=== PATIENT | female | born 1970 | race Caucasian/White ===

== ENCOUNTER 2019-10-15 17:41 | Inpatient (IN) | payer BC ==
[2019-10-15] MEDS ORDERED: HEPARIN SODIUM,PORCINE 5,000 UNIT/ML 1 ML VIAL IV STA (17:58)
[2019-10-15] MEDS ORDERED: CLOPIDOGREL 75 MG TAB PO STA (17:59)
--- NOTE | 2019-10-15 18:02 | ED ---
General Adult HPI - General Chief complaint: Arrhythmia/Palpitations Stated complaint: trouble breathing Time Seen by Provider: 10/15/19 17:43 Source: patient Mode of arrival: EMS Limitations: no limitations - History of Present Illness Initial comments: Dictation was produced using Plasmon dictation software. please excuse any grammatical, word or spelling errors. This patient was cared for during a federal and state declared state of emergency secondary to Covid 19 Chief Complaint: 49-year-old female presents with dyspnea History of Present Illness: 49-year-old female she was swimming today when she saw him a little too far. Really short of breath and attempted to swim back. When she got back to shore she was very short of breath. She did appear cyanotic to EMS upon initial evaluation. Patient adamantly denies chest pain however EMS reports that when they initially evaluated her she did complain of some chest pain. She became very nauseated and had an episode of emesis. Initial EKG performed by EMS was concerning for SVT according to them. They provided patient with adenosine. The did repeat a EKG. Patient at bedside reports she feels well. She denies any chest pain or shortness of breath at this time. She does complain of some mild back discomfort. The ROS documented in this emergency department record has been reviewed and confirmed by me. Those systems with pertinent positive or negative responses have been documented in the HPI. All other systems are other negative and/or noncontributory. PHYSICAL EXAM: General Impression: Alert and oriented x3, not in acute distress HEENT: Normocephalic atraumatic, extra-ocular movements intact, pupils equal and reactive to light bilaterally, mucous membranes moist. Cardiovascular: Heart regular rate and rhythm Chest: Able to complete full sentences, no retractions, no tachypnea Abdomen: abdomen soft, non-tender, non-distended, no organomegaly Musculoskeletal: Pulses present and equal in all extremities, no peripheral edema Motor: no focal deficits noted Neurological: CN II-XII grossly intact, no focal motor or sensory deficits noted Skin: Intact with no visualized rashes Psych: Normal affect and mood ED course: 49 y Old female presents with exertional dyspnea while swimming today. All signs upon arrival shows 80% on room air. Blood pressure 160/122, respiratory signs within acceptable limits. Patient adamantly denies any chest pain or shortness of breath at this time. EKG was obtained showing findings concerning for ST segment elevation WI. Code STEMI page. Discussed patient case with Dr. William at approximately 6 PM. He was reported to him that patient has no complaints at this time however that she has an EKG concerning for ST segment elevation WI. She does have ST elevations in the high lateral leads and anterior precordial leads. There appears to be reciprocal depressions in inferior leads. Her symptoms although not present currently are concerning for acute coronary syndrome. She does have risk factors for acute coronary syndrome. EKG was faxed to [phone]. Patient has an ALLERGY to aspirin. A sked what her reaction is aspirin she states that when she was 4 years old she had significant facial swelling. At this point is concerning for anaphylaxis. We will withhold aspirin administration at this time. Patient started on heparin. Patient disposition to veterinary laboratory technician. She'll be admitted to hospitalist group. EKG interpretation: Ventricular rate 94, normal sinus rhythm, TN interval 142, QRS 80, QTC 470. No TN prolongation, no QTC prolongation, no old EKG for comparison. ST elevation's and high lateral leads, and V2 and V3 with reciprocal depressions in 2,3 and aVF. EKG concerning for ST segment elevation WI - Related Data Home Medications Medication Instructions Recorded Confirmed Carvedilol [Coreg] 25 mg PO BID 10/15/19 10/15/19 Hydrochlorothiazide (Unknown 1 tab PO DAILY 10/15/19 10/15/19 Strength) Losartan (Unknown Strength) 1 tab PO DAILY 10/15/19 10/15/19 PARoxetine HCL [Paxil] 40 mg PO DAILY 10/15/19 10/15/19 Allergies Allergy/AdvReac Type Severity Reaction Status Date / Time aspirin Allergy Swelling Verified 10/15/19 18:10 morphine Allergy Vomiting Verified 10/15/19 18:10 NSAIDS (Non-Steroidal Allergy Swelling Verified 10/15/19 18:10 Anti-Inflamma Review of Systems ROS Statement: Those systems with pertinent positive or pertinent negative responses have been documented in the HPI. ROS Other: All systems not noted in ROS Statement are negative. Past Medical History Past Medical History: Hypertension History of Any Multi-Drug Resistant Organisms: None Reported Past Surgical History: Back Surgery, Section, Hysterectomy Past Psychological History: Anxiety, Panic Disorder Smoking Status: Current every day smoker Past Alcohol Use History: None Reported Past Drug Use History: Marijuana General Exam Limitations: no limitations Course Vital Signs 10/15/19 17:44 Temperature 98.3 F Pulse Rate 99 Respiratory 18 Rate Blood Pressure 160/122 O2 Sat by Pulse 88 L Oximetry Medical Decision Making - Lab Data Result diagrams: 10/15/19 17:55 Lab Results 10/15/19 Range/Units 17:55 WBC 11.7 H (3.8-10.6) k/uL RBC 4.78 (3.80-5.40) m/uL Hgb 14.9 (11.4-16.0) gm/dL Hct 47.4 H (34.0-46.0) % MCV 99.3 (80.0-100.0) fL MCH 31.1 (25.0-35.0) pg MCHC 31.4 (31.0-37.0) g/dL RDW 15.0 (11.5-15.5) % Plt Count 287 (150-450) k/uL Neutrophils % 56 % Lymphocytes % 37 % Monocytes % 3 % Eosinophils % 3 % Basophils % 0 % Neutrophils # 6.5 (1.3-7.7) k/uL Lymphocytes # 4.3 (1.0-4.8) k/uL Monocytes # 0.3 (0-1.0) k/uL Eosinophils # 0.3 (0-0.7) k/uL Basophils # 0.1 (0-0.2) k/uL Hypochromasia Moderate Macrocytosis Slight Disposition Clinical Impression: STEMI (ST elevation myocardial infarction) Disposition: ADMITTED IP TO THIS [facility] Condition: Critical Referrals: Nonstaff,Physician [Primary Care Provider] - 1-2 days Decision Time: 18:17
[2019-10-15 18:10] LABS: Basophils # (A) 0.1 k/uL (0-0.2); Basophils % (A) 0 %; Eosinophils # (A) 0.3 k/uL (0-0.7); Eosinophils % (A) 3 %; HCT 47.4 % (34.0-46.0); HGB 14.9 gm/dL (11.4-16.0); Hypochromasia Moderate; Lymphocytes # (A) 4.3 k/uL (1.0-4.8); Lymphocytes % (A) 37 %; MCH 31.1 pg (25.0-35.0); MCHC 31.4 g/dL (31.0-37.0); MCV 99.3 fL (80.0-100.0); Macrocytosis Slight; Mean Platelet Volume 8.6; Monocytes # (A) 0.3 k/uL (0-1.0); Monocytes % (A) 3 %; Neutrophils # (A) 6.5 k/uL (1.3-7.7); Neutrophils % (A) 56 %; Platelet Count 287 k/uL (150-450); RBC 4.78 m/uL (3.80-5.40); WBC 11.7 k/uL (3.8-10.6)
--- NOTE | 2019-10-15 18:12 | XR ---
EXAMINATION TYPE: XR chest 1V portable DATE OF EXAM: 10/15/2019 COMPARISON: NONE HISTORY: Chest pain TECHNIQUE: FINDINGS: Heart and mediastinum are normal. Lungs are clear of consolidation. There are no hilar mass es. Costophrenic angles are clear. IMPRESSION: Normal heart. No active cardiopulmonary disease.
[2019-10-15] MEDS ORDERED: NALOXONE 0.4 MG/ML 1 ML VIAL IV PRN (18:17)
[2019-10-15 18:18] LABS: INR 0.9 (<1.2); Prothrombin Time 9.6 sec (9.0-12.0)
[2019-10-15 18:20] LABS: Albumin 4.2 g/dL (3.5-5.0); Calcium 8.7 mg/dL (8.4-10.2); Potassium 4.7 mmol/L (3.5-5.1); Total Bilirubin 0.3 mg/dL (0.2-1.3); Total Protein 6.8 g/dL (6.3-8.2)
[2019-10-15 18:25] LABS: Partial Thromboplastin Time 22.2 sec (22.0-30.0)
[2019-10-15 18:32] LABS: Creatine Kinase MB 5.6 ng/mL (0.0-2.4)
[2019-10-15 18:33] LABS: Troponin I 0.841 ng/mL (0.000-0.034)
[2019-10-15] MEDS ORDERED: SODIUM CHLORIDE 0.9% 1,000 ML IV ONE (18:37)
[2019-10-15] MEDS: MIDAZOLAM 2 MG/2 ML VIAL IVP ONE ×2 (18:45→18:52)
[2019-10-15] MEDS ORDERED: METOPROLOL TARTRATE 5 MG/5 ML VIAL IVP ONE ×2 (18:45→18:47)
[2019-10-15] MEDS ORDERED: LIDOCAINE 1% INJ 10MG/ML (20 ML MDV) SQ ONE (18:48)
[2019-10-15] MEDS ORDERED: fentaNYL (PF) 50 MCG/ML 2 ML AMP ONE (18:49)
[2019-10-15] MEDS ORDERED: fentaNYL (PF) 50 MCG/ML 2 ML AMP IVP ONE (18:52)
[2019-10-15] MEDS ORDERED: FUROSEMIDE 10 MG/ML 4 ML VIAL ONE (19:05)
[2019-10-15] MEDS ORDERED: FUROSEMIDE 10 MG/ML 4 ML VIAL IVP ONE (19:12)
[2019-10-15] MEDS ORDERED: IOPAMIDOL-370 50ML BTL INJ ONE (19:13)
[2019-10-15] MEDS ORDERED: IOPAMIDOL-370 100ML BTL INJ ONE (19:13)
[2019-10-15 19:17] LABS: ABG Base Excess -5.4 mmol/L; ABG HCO3 23 mmol/L (21-25); ABG Oxygen Saturation 75.8 % (94-97); ABG PCO2 59 mmHg (35-45); ABG TCO2 25 mmol/L (19-24); Allen Test Performed? Yes
[2019-10-15 19:23] LABS: ABG PH 7.19 (7.35-7.45); ABG PO2 49 mmHg (83-108)
[2019-10-15 19:43] LABS: Glucose,Whole Blood 186 mg/dL (75-99)
[2019-10-15] MEDS ORDERED: FUROSEMIDE 10 MG/ML 2 ML VIAL IV ONE (20:00)
[2019-10-15] MEDS ORDERED: DOBUTamine DRIP 500 MG in DEXTROSE/WATER 1 250ML.BAG IV SCH (20:15)
[2019-10-15] MEDS ORDERED: FUROSEMIDE 100 MG in SODIUM CHLORIDE 0.9% 90 ML IV SCH (20:15)
[2019-10-15 20:25] LABS: Magnesium 2.1 mg/dL (1.6-2.3); Potassium 4.9 mmol/L (3.5-5.1)
[2019-10-15] MEDS ORDERED: ONDANSETRON 4 MG/2 ML VIAL IVP PRN (20:38)
[2019-10-15] MEDS: SODIUM CHLORIDE 0.9% 1,000 ML IV SCH (21:00)
--- NOTE | 2019-10-16 00:03 | CONS ---
CONSULTATION This is a 49-year-old lady who I evaluated in the cardiac dental laboratory technician apprentice. This lady apparently came for day visit from the [facility]. She was inside the [place] about water up to her chest and she was swimming and waiting and playing and her grandson and were out on the beach. Suddenly her saw the 2 people were bringing her to the shore because she was extremely short of breath and she complained of some chest tightness and pressure. She was brought to the emergency room, seen by the ER doctor. There was a mild questionable equivocal ST elevation in lead 1 and aVL. The dental laboratory technician apprentice was alerted. Dr. William was called and he notified me and I came into see the patient. At the time of my evaluation, she did not have chest pain. She said she probably had a panic attack, but she was quite short of breath, did not get her breath. She looks very cold, clammy and oxygen saturation is about 80%. She did not have any chest discomfort at the time of my evaluation. PAST MEDICAL HISTORY: Remarkable for hypertension, smoking and marijuana use. She is also status post section and hysterectomy and back surgery. MEDICATIONS: She takes hydrochlorothiazide, losartan, and Coreg. ALLERGIES: SHE IS ALLERGIC TO ASPIRIN AND MORPHINE. PHYSICAL EXAMINATION: On examination, blood pressure was 130/80 pulse rate of about 118 per minute, tachycardic. HEENT: Unremarkable. Fundus was not examined by me. NECK: Supple. There is JVD of 1 cm. No carotid bruit. Heart exam reveals S1, S2 heard normally. No significant rub, murmur or gallop. Lungs reveal bilateral diminished air entry. Abdomen is soft. Lower extremities reveal diminished pulses. Central nervous system grossly within normal limits. EKG revealed a sinus tachycardia was questionable J-point elevation in lead 1 and aVL, but voltage criteria for LVH, probable cardiomyopathy. IMPRESSION: 1. Probable acute ischemic syndrome. No clear-cut ST elevation myocardial infarction. 2. Hypertension. 3. History of marijuana use and she used marijuana about 45 minutes prior to her arrival to the hospital. 4. History of tobacco abuse. RECOMMENDATIONS: I recommended coronary angiography and proceeded to perform the procedure expeditiously. MMODL / IJN: [id number] /
--- NOTE | 2019-10-16 00:12 | CC ---
CARDIAC CATHETERIZATION REPORT DATE OF SERVICE: 10/15/2019. PROCEDURE PERFORMED: Left heart catheterization and coronary angiography and left ventriculography. PERFORMED BY: Dr. Cb Glover. SEDATION: Moderate conscious sedation time was 26 minutes. Patient was administered Versed. Oxygen saturation, hemodynamics and EKG were monitored closely. CLINICAL INFORMATION: Mrs. Elisabeth Monterroso is a 49-year-old lady with history of hypertension smoking and marijuana use, came into the hospital with severe shortness of breath, had equivocal ST- segment changes and was advised cardiac catheterization after evaluation in the laborer operator. Procedure, risks, benefits, options, rationale were explained. PROCEDURE NOTE: Under local anesthesia and strict aseptic precautions, a 6-Sammarinese introducer was placed in the right femoral artery. Using left Jonathan guide catheter, I performed selective coronary angiography of the left coronary artery and a right catheter was used to check the right coronary artery. A standard Jonathan right catheter was used. I also checked LV pressures. I then used a pigtail to check LV pressures and performed LV-gram in 30- degree GALLAGHER projection. The patient tolerated procedure well. The sheath was taken out and Angio-Seal device used to secure hemostasis and she was sent to the room in a stable condition. She was sent to the room in hemodynamically stable condition. However, patient was quite hypoxic. Her oxygen saturation was in the 80s. I sent out a lactate and blood gases. Lactate level was 7.4, and ejection fraction is less than 15%. Her acidosis is related to poor cardiac output and lactic acid is also related to a poor cardiac output situation. CARDIAC CATHETERIZATION FINDINGS: CORONARY ANGIOGRAPHY FINDINGS: The left ventricle: The left end-diastolic pressure was about 22 mmHg without any gradient across aortic valve. CORONARY ANGIOGRAPHY FINDINGS: LEFT MAIN CORONARY ARTERY: Short patent disease-free vessel that bifurcates into LAD and circumflex. LEFT ANTERIOR DESCENDING CORONARY ARTERY: Good caliber vessel extends along the anterior wall. In the midportion, there is about a 45% to 50% narrowing and a septal branch. Then the caliber improves, flow is somewhat sluggish. It runs all the way to the apex supplying a sizable amount of myocardium. There is no significant disease in the entire LAD system other than the than the 45% to 50% mid lesion at the origin of a septal branch. Flow is sluggish. There are 2 diagonals, free of significant disease. LEFT POSTERIOR CIRCUMFLEX CORONARY ARTERY: Technically a nondominant vessel of good caliber and good distribution, gives of 2 large obtuse marginal branches that are free of significant disease. The groove branch has minor irregularities. LEFT VENTRICULOGRAM This was performed in 30-degree GALLAGHER projection, revealed ejection fraction of less than 10% with global decrease in contractility noted. There is moderate to severe mitral regurgitation noted. Possibility of mitral valve prolapse is also not excluded. Aortic root is normal in size. IMPRESSION: 1. This patient has a right dominant system 45% to 50% mid LAD lesion. No significant gradient across aortic valve. Elevated filling pressures. Ejection fraction of less than 20% with the krsiuven-qe-hndvvj mitral regurgitation and possible mitral valve prolapse. RECOMMENDATIONS: This patient has an unexplained acute heart failure with poor pump. I am recommending IV Lasix drip and dobutamine drip. Prognosis remains quite guarded and poor. I discussed my thoughts in detail with the patient and family. Patient is being sent to the ICU to be watched carefully. She will be on a dobutamine drip and Lasix drip and I spoke to Dr. Guevara from Critical Care Management standpoint and he will be following the patient as well. Etiology seems unclear whether this is an acute myocarditis or a takotsubo type picture is somewhat unclear. Prognosis however remains guarded and this was explained very clearly to the patient as well as her . Possibility of this being related to her marijuana use also cannot be totally excluded. Prognosis remains quite guarded and we will continue to watch her very carefully. MMODL / IJN: [id number] /
[2019-10-16] MEDS ORDERED: ACETAMINOPHEN TAB 500 MG TAB PO PRN (00:27)
[2019-10-16] MEDS ORDERED: TEMAZEPAM 15 MG CAP PO PRN (00:27)
[2019-10-16 02:07] LABS: Appearance,Urine Clear (Clear); Bilirubin,Urine Negative (Negative); Blood,Urine Negative (Negative); Color,Urine Colorless; Glucose,Urine (UA) Negative (Negative); Ketones,Urine Negative (Negative); Leukocyte Esterase,Urine Negative (Negative); Nitrite,Urine Negative (Negative); Protein,Urine Negative (Negative); Specific Gravity,Urine 1.013 (1.001-1.035); Urobilinogen,Urine <2.0 mg/dL (<2.0)
[2019-10-16 02:18] LABS: Amphetamine Screen,Urine Not Detected (NotDetected); Barbiturate Screen,Urine Not Detected (NotDetected); Benzodiazepines Screen,Urine Not Detected (NotDetected); Cocaine Screen,Urine Not Detected (NotDetected); Methadone Screen, Urine Not Detected (NotDetected); Opiate Screen,Urine Not Detected (NotDetected); Oxycodone Screen, Urine Not Detected (NotDetected); Phencyclidine Screen,Urine Not Detected (NotDetected); Tricyclic Antidepressant,Urine Not Detected (NotDetected); Urn Cannabinoid Scrn Detected (NotDetected)
[2019-10-16 05:03] LABS: Basophils % (A) 0 %; Eosinophils # (A) 0.2 k/uL (0-0.7); Eosinophils % (A) 1 %; HCT 45.9 % (34.0-46.0); Lymphocytes # (A) 3.1 k/uL (1.0-4.8); Lymphocytes % (A) 20 %; MCH 30.7 pg (25.0-35.0); MCHC 32.6 g/dL (31.0-37.0); Mean Platelet Volume 8.1; Monocytes # (A) 0.6 k/uL (0-1.0); Monocytes % (A) 4 %; Neutrophils # (A) 11.6 k/uL (1.3-7.7); Neutrophils % (A) 74 %; Platelet Count 301 k/uL (150-450); RBC 4.87 m/uL (3.80-5.40); RDW 14.8 % (11.5-15.5); WBC 15.7 k/uL (3.8-10.6)
[2019-10-16 05:09] LABS: MCV 94.1 fL (80.0-100.0)
[2019-10-16 05:15] LABS: Albumin 4.4 g/dL (3.5-5.0); C Reactive Protein 34.4 mg/L (<10.0); Calcium 8.5 mg/dL (8.4-10.2); Potassium 4.1 mmol/L (3.5-5.1); Total Bilirubin 0.4 mg/dL (0.2-1.3); Total Protein 6.8 g/dL (6.3-8.2)
[2019-10-16 05:44] LABS: Erythrocyte Sedimentation Rate 13 mm/hr (0-20)
[2019-10-16] MEDS: PANTOPRAZOLE 40 MG TABLET PO SCH (07:07)
[2019-10-16 07:13] LABS: Glucose,Whole Blood 103 mg/dL (75-99)
--- NOTE | 2019-10-16 08:37 | HP ---
HISTORY AND PHYSICAL DATE OF SERVICE: 10/15/2019 CHIEF COMPLAINTS: Shortness of breath. HISTORY OF PRESENT ILLNESS: This is a 49-year-old woman, who is from [place], with a past medical history of hypertension, history of SVT, history of hysterectomy, in 2008, anxiety, panic attacks and history of smoking. She was apparently sitting on the beach in [place]. The patient became short of breath and the patient was apparently cyanotic and EMS saw the patient and SVT was suspected. The patient was given adenosine. The patient was admitted for further evaluation. EKG showed ST-T changes suggestive of anterior wall myocardial infarction with reciprocal changes. The patient also complains of chest tightness and pressure. Cardiac catheterization was done by Dr. Cb Glover which showed ejection fraction about 20% with tolijgla-ad-jthway mitral regurgitation, possible mitral valve prolapse and as well as 45 to 50 percent mild LAD lesion also. The patient was admitted for further evaluation and treatment in ICU. There is no history of fever, rigors, chills. No history of headaches, loss of consciousness or seizures. PAST MEDICAL HISTORY: History of hypertension, history of SVT, history of hysterectomy, anxiety, panic attacks. MEDICATIONS: Prior to admission; 1. Paxil 40 mg p.o. daily. 2. Coreg 25 mg p.o. b.i.d. 3. Losartan hydrochlorothiazide. ALLERGIES: ASPIRIN AND MORPHINE. FAMILY HISTORY: No history of heart disease or strokes in the family. SOCIAL HISTORY: History of smoking. History of occasional alcohol intake and THC. REVIEW OF SYSTEMS: ENT: No history of diminished hearing or vision. CARDIOVASCULAR: As mentioned earlier. RESPIRATORY: As mentioned earlier. GI: No nausea, vomiting, or diarrhea. : No dysuria or hematuria. NERVOUS SYSTEM: No numbness or weakness. ALLERGY/IMMUNOLOGY: No asthma or hayfever. MUSCULOSKELETAL: As mentioned earlier. HEMATOLOGY/ONCOLOGY: No history of anemia. ENDOCRINE: No history of diabetes or hypothyroidism. CONSTITUTIONAL: As mentioned earlier. DERMATOLOGY: Negative. RHEUMATOLOGY: Negative PSYCHIATRY: As mentioned earlier. PHYSICAL EXAMINATION: Alert and oriented times three. Pulse 81, blood pressure 125/90, respiration 18, temperature normal, pulse ox 94% on room air. HEENT: Conjunctivae normal. NECK: No jugular venous distention. CARDIOVASCULAR: S1, S2, muffled. RESPIRATORY: Diminished breath sounds at the bases. No rhonchi or crackles. ABDOMEN: Soft, nontender. No masses palpable. LEGS: No edema, no swelling. NERVOUS SYSTEM: Higher functions mentioned earlier. Moves all four limbs. No focal motor or sensory deficits. LYMPHATICS: No lymph node in neck or axilla. SKIN: No rash. JOINTS: No active deforming arthropathy. LABS: At this time shows WBC 11.6, hemoglobin is 14.9 otherwise ABGs showed pH of 7.19, sodium 141, potassium 4.7 and creatinine is 1.15. Glucose 199. Lactic acid 1.4 and AST is 120, ALT is 49, alkaline phosphatase 155. Troponin 0.841. ASSESSMENT: 1. Possible acute coronary syndrome with acute dln-ZD-camvghx-elevation myocardial infarction with troponin 0.841 with status post cardiac catheterization showing 45- 50 percent left anterior descending lesion. 2. Possible cardiomyopathy, ejection fraction 20% with kowsrqds-vg-pyaaoe mitral regurgitation with possible mitral valve prolapse, possible takotsubo syndrome. 4. Possible supraventricular tachycardia. 5. Increased AST and ALT, possibly hepatitis. 6. Rule out COVID-19. 7. Elevated plasma lactic acid, possibly from hypoperfusion. 8. Metabolic acidosis, possible lactic acidosis. 9. Increased creatinine with mild acute renal failure possible acute tubular necrosis. 10.Increased white blood cells. 11.History of nicotine dependence. 12.History hypertension. 13.History of hysterectomy. 14.History of cardiac catheterization. 15.History of panic attacks. 16.History of THC. 17.History of anxiety. 18.FULL CODE. RECOMMENDATIONS AND DISCUSSION: In this 49-year-old woman who presented with multiple complex medical issues, we will monitor the patient closely. Continue the current management and continue with symptomatic treatment. Otherwise monitor blood pressure closely in the ICU. A 2D echo with Doppler. Repeat labs. The exact etiology of the patient's presentation is unknown at this time. I would also recommend D-dimer and continue to monitor. COVID-19 also will be requested. Otherwise, prognosis guarded because of multiple complex medical issues. Further recommendations to follow. MMODL / IJN: [id number] / MTDD
[2019-10-16] MEDS: SPIRONOLACTONE 25 MG TAB PO SCH (08:56)
[2019-10-16] MEDS: FUROSEMIDE 10 MG/ML 4 ML VIAL IV SCH ×2 (08:57→20:37)
[2019-10-16] MEDS: HEPARIN SODIUM,PORCINE 5,000 UNIT/ML 1 ML VIAL SQ SCH ×2 (08:57→20:37)
[2019-10-16] MEDS: NICOTINE 14MG/24HR PATCH TRANSDERM SCH (08:57)
[2019-10-16] MEDS: CARVEDILOL 3.125 MG TAB PO SCH ×2 (08:58→17:36)
[2019-10-16] MEDS ORDERED: LISINOPRIL 5 MG TAB PO SCH (09:00)
--- NOTE | 2019-10-16 10:15 | P.PN ---
Subjective Progress Note Date: 10/16/19 This is a 49-year-old female who was swimming yesterday and claimed that she might have been under the water. Patient had some difficulty breathing and subsequently was brought to the emergency room. Her EKG showed some mild ST elevation 1 and aVL and also V1, V2. She was not having any chest pain. Be cause of abnormal EKG, which was questionable for TN, patient was taken label rewinder. Patient had normal coronary arteries but was found to have severely impaired LV function with elevated end-diastolic pressures. Patient was brought on IV Lasix and IV dobutamine. Patient diary [employer] might. She seemed very comfortable. Alert and oriented and in no acute distress. Lying flat in bed without any discomfort or dyspnea. We'll going to discontinue the Lasix drip and dobutamine drip. She was initiated on Lasix by mouth along with Coreg and IFRAH inhibitor. Further recommendation will depend upon the clinical course. We'll also repeat the echocardiogram on Thursday Objective - Vital Signs Vital signs: Vital Signs Temp 98.8 F 10/16/19 04:00 Pulse 77 10/16/19 06:45 Resp 25 H 10/16/19 07:00 BP 118/83 10/16/19 07:00 Pulse Ox 98 10/16/19 07:00 Intake & Output 10/15/19 10/16/19 10/16/19 18:59 06:59 18:59 Intake Total 475 1162.553 75 Output Total 2625 350 Balance 475 -1462.447 -275 Weight 68.039 kg 68.039 kg Intake: IV 475 900 75 Sodium Chloride 0.9% 1, 900 75 000 ml @ 75 mls/hr IV . [id number] MARGARET Rx#:[id number] Intake, IV Titration 22.553 Amount DOBUTamine DRIP 500 mg In 1.786 Dextrose/Water 1 250ml. bag @ 2.5 MCG/KG/MIN 5. 103 mls/hr IV .Q24H MARGARET Rx#:[id number] Furosemide 100 mg In 20.767 Sodium Chloride 0.9% 90 ml @ 7 MG/HR 7 mls/hr IV .[id number] MARGARET Rx#: [id number] Oral 240 Output: Urine 2625 350 Other: Voiding Method Indwelling Catheter - Exam GENERAL EXAM: Patient is alert and oriented and doesn't appear to be in any acute distress HEENT: Normocephalic. Normal reaction of pupils, equal size, normal range of extraocular motion. No erythema or exudates in the throat. NECK: No masses, no nuchal rigidity. CHEST: No chest wall deformity. LUNGS: Equal air entry with no crackles or wheeze. HEART: S1 and S2 normal with no audible mumurs or gallops. Regular rhythm, femorals equal on both sides.. ABDOMEN: No hepatosplenomegaly, normal bowel sounds, no guarding or rigidity. SKIN: No rashes CENTRAL NERVOUS SYSTEM: No focal deficits. EXTREMITIES: No cyanosis, clubbing or edema. - Labs CBC & Chem 7: 10/16/19 04:32 10/16/19 04:32 Labs: Abnormal Lab Results - Last 24 Hours (Table) 10/15/19 10/15/19 10/15/19 Range/Units 17:55 17:55 17:55 WBC 11.7 H (3.8-10.6) k/uL Hct 47.4 H (34.0-46.0) % Neutrophils # (1.3-7.7) k/uL ABG pH (7.35-7.45) ABG pCO2 (35-45) mmHg ABG pO2 (83-108) mmHg ABG Total CO2 (19-24) mmol/L ABG O2 Saturation (94-97) % Chloride (98-107) mmol/L Carbon Dioxide 19 L (22-30) mmol/L BUN 20 H (7-17) mg/dL Creatinine 1.15 H (0.52-1.04) mg/dL Glucose 199 H (74-99) mg/dL POC Glucose (mg/dL) (75-99) mg/dL Plasma Lactic Acid Miguel (0.7-2.0) mmol/L AST 122 H (14-36) U/L ALT 49 H (4-34) U/L Alkaline Phosphatase 155 H (38-126) U/L Total Creatine Kinase 179 H (30-135) U/L CK-MB (CK-2) 5.6 H (0.0-2.4) ng/mL Troponin I 0.841 H* (0.000-0.034) ng/mL C-Reactive Protein (<10.0) mg/L U Marijuana (THC) Screen (NotDetected) 10/15/19 10/15/19 10/15/19 Range/Units 17:55 19:13 19:41 WBC (3.8-10.6) k/uL Hct (34.0-46.0) % Neutrophils # (1.3-7.7) k/uL ABG pH 7.19 L* (7.35-7.45) ABG pCO2 59 H (35-45) mmHg ABG pO2 49 L* (83-108) mmHg ABG Total CO2 25 H (19-24) mmol/L ABG O2 Saturation 75.8 L (94-97) % Chloride (98-107) mmol/L Carbon Dioxide (22-30) mmol/L BUN (7-17) mg/dL Creatinine (0.52-1.04) mg/dL Glucose (74-99) mg/dL POC Glucose (mg/dL) 186 H (75-99) mg/dL Plasma Lactic Acid Miguel 7.4 H* (0.7-2.0) mmol/L AST (14-36) U/L ALT (4-34) U/L Alkaline Phosphatase (38-126) U/L Total Creatine Kinase (30-135) U/L CK-MB (CK-2) (0.0-2.4) ng/mL Troponin I (0.000-0.034) ng/mL C-Reactive Protein (<10.0) mg/L U Marijuana (THC) Screen (NotDetected) 10/15/19 10/15/19 10/16/19 Range/Units 19:55 22:25 01:55 WBC (3.8-10.6) k/uL Hct (34.0-46.0) % Neutrophils # (1.3-7.7) k/uL ABG pH (7.35-7.45) ABG pCO2 (35-45) mmHg ABG pO2 (83-108) mmHg ABG Total CO2 (19-24) mmol/L ABG O2 Saturation (94-97) % Chloride 110 H (98-107) mmol/L Carbon Dioxide 19 L (22-30) mmol/L BUN (7-17) mg/dL Creatinine (0.52-1.04) mg/dL Glucose (74-99) mg/dL POC Glucose (mg/dL) (75-99) mg/dL Plasma Lactic Acid Miguel 2.3 H* (0.7-2.0) mmol/L AST (14-36) U/L ALT (4-34) U/L Alkaline Phosphatase (38-126) U/L Total Creatine Kinase (30-135) U/L CK-MB (CK-2) (0.0-2.4) ng/mL Troponin I (0.000-0.034) ng/mL C-Reactive Protein (<10.0) mg/L U Marijuana (THC) Screen Detected H (NotDetected) 10/16/19 10/16/19 10/16/19 Range/Units 04:32 04:32 07:11 WBC 15.7 H (3.8-10.6) k/uL Hct (34.0-46.0) % Neutrophils # 11.6 H (1.3-7.7) k/uL ABG pH (7.35-7.45) ABG pCO2 (35-45) mmHg ABG pO2 (83-108) mmHg ABG Total CO2 (19-24) mmol/L ABG O2 Saturation (94-97) % Chloride (98-107) mmol/L Carbon Dioxide (22-30) mmol/L BUN 19 H (7-17) mg/dL Creatinine (0.52-1.04) mg/dL Glucose 135 H (74-99) mg/dL POC Glucose (mg/dL) 103 H (75-99) mg/dL Plasma Lactic Acid Miguel (0.7-2.0) mmol/L AST 63 H (14-36) U/L ALT 45 H (4-34) U/L Alkaline Phosphatase 147 H (38-126) U/L Total Creatine Kinase (30-135) U/L CK-MB (CK-2) (0.0-2.4) ng/mL Troponin I (0.000-0.034) ng/mL C-Reactive Protein 34.4 H (<10.0) mg/L U Marijuana (THC) Screen (NotDetected) Assessment and Plan (1) Cardiomyopathy Current Visit: Yes Status: Acute Code(s): I42.9 - CARDIOMYOPATHY, UNSPECIFIED SNOMED Code(s): 67921600 (2) Congestive heart failure Current Visit: Yes Status: Acute Code(s): I50.9 - HEART FAILURE, UNSPECIFIED SNOMED Code(s): 72225944 (3) Elevated troponin Current Visit: Yes Status: Acute Code(s): R79.89 - OTHER SPECIFIED ABNORMAL FINDINGS OF BLOOD CHEMISTRY SNOMED Code(s): 637737412 (4) Abnormal EKG Current Visit: Yes Status: Acute Code(s): R94.31 - ABNORMAL ELECTROCARDIOGRAM [ECG] [EKG] SNOMED Code(s): 270737252 Plan: Switch to by mouth Lasix. Discontinue dobutamine. Start on beta jhonatan and IFRAH inhibitor R's and small dose of Aldactone. Echocardiogram in the morning. Surprisingly proBNP is within normal limits
[2019-10-16 12:08] LABS: Glucose,Whole Blood 105 mg/dL (75-99)
[2019-10-16] MEDS: SODIUM CHLORIDE 0.9% 1,000 ML IV SCH (13:08)
[2019-10-16] MEDS: ALPRAZolam 0.25 MG TAB PO PRN (13:58)
--- NOTE | 2019-10-16 13:59 | P.CNPUL ---
History of Present Illness Consult date: 10/16/19 Requesting physician: Mariela Au Reason for consult: dyspnea Chief complaint: Shortness of breath History of present illness: This is a 49-year-old female with no significant previous medical history, patient is a [id number] smoker, she was swimming yesterday, and apparently she had significant difficulty getting back to the [facility]. Upon arrival to the [facility], patient was complaining of shortness of breath, she was also diaphoretic, brought into the ER, and she was found to have abnormal EKG with mild ST elevation in aVL, and she had no chest pain. Considering her abnormal EKG and symptoms, patient underwent cardiac catheterization. She was found to have normal coronaries, but she was found to have severely impaired left ventricular function. There is also significant elevation of the end diastolic pressures. Chest x-ray showed mild edema. 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 Saw her today, the patient is very comfortable, she is on room air, and she is in no distress. Denies any cough no wheezing no shortness of breath at rest, she was seen earlier by cardiology, and she was switched to oral Lasix and her dobutamine was discontinued. Patient was also placed on Coreg, IFRAH inhibitor's, and the feeling is to repeat her echocardiogram on Thursday, patient may have what seems to be a takustubo syndrome. Patient denies any alcohol drinking, denies any previous symptoms suggestive of artery myopathy or LV dysfunction. This seems to be relatively acute onset. Review of Systems Constitutional: Negative HEENT: Negative Pulmonary: As noted in HPI. Cardiac: As noted in HPI. GI: Negative Genitourinary: Negative Skin: Negative Musculoskeletal: Negative Neuropsych: Negative Endocrine: Negative Hematologic: Negative Past Medical History Past Medical History: Hypertension Additional Past Medical History / Comment(s): svt History of Any Multi-Drug Resistant Organisms: None Reported Past Surgical History: Back Surgery, Section, Hysterectomy Additional Past Surgical History / Comment(s): Heart Cath 2018 Past Psychological History: Anxiety, Panic Disorder Smoking Status: Current every day smoker Past Alcohol Use History: None Reported Past Drug Use History: Marijuana Medications and Allergies Home Medications Medication Instructions Recorded Confirmed Type Carvedilol [Coreg] 25 mg PO BID 10/15/19 10/15/19 History Hydrochlorothiazide (Unknown 1 tab PO DAILY 10/15/19 10/15/19 History Strength) Losartan (Unknown Strength) 1 tab PO DAILY 10/15/19 10/15/19 History PARoxetine HCL [Paxil] 40 mg PO DAILY 10/15/19 10/15/19 History Allergies Allergy/AdvReac Type Severity Reaction Status Date / Time aspirin Allergy Swelling Verified 10/15/19 18:10 morphine Allergy Vomiting Verified 10/15/19 18:10 NSAIDS (Non-Steroidal Allergy Swelling Verified 10/15/19 18:10 Anti-Inflamma Physical Exam Vitals: Vital Signs Temp Pulse Resp BP Pulse Ox 10/16/19 13:00 90 17 103/74 96 10/16/19 12:00 98.4 F 62 18 115/91 97 10/16/19 11:00 72 25 H 117/94 97 10/16/19 10:30 69 18 123/95 97 10/16/19 10:00 88 17 113/89 97 10/16/19 09:30 72 21 135/100 93 L 10/16/19 09:15 88 24 108/93 92 L 10/16/19 09:00 77 26 H 124/95 90 L 10/16/19 08:45 102 H 26 H 122/94 94 L 10/16/19 08:30 75 14 117/82 90 L 10/16/19 08:15 82 24 123/84 95 10/16/19 08:00 98.2 F 68 20 131/92 95 10/16/19 07:45 71 24 128/89 98 05 07:30 75 20 125/90 98 10/16/19 07:15 73 20 132/97 98 10/16/19 07:00 25 H 118/83 98 10/16/19 06:45 77 28 H 125/92 97 10/16/19 06:30 68 39 H 119/87 97 10/16/19 06:15 74 12 120/88 97 10/16/19 06:00 74 10 L 121/97 96 10/16/19 05:45 84 8 L 118/83 94 L 10/16/19 05:30 76 12 115/83 95 05 05:15 81 12 115/86 95 10/16/19 05:00 75 20 113/84 95 10/16/19 04:45 72 21 128/97 96 10/16/19 04:30 77 8 L 129/96 98 10/16/19 04:15 75 12 133/99 99 10/16/19 04:00 98.8 F 79 20 115/84 97 10/16/19 03:45 78 19 126/96 98 10/16/19 03:30 78 22 122/86 98 10/16/19 03:15 77 16 118/85 99 10/16/19 03:00 78 24 114/84 98 10/16/19 02:45 76 21 108/85 98 10/16/19 02:30 78 19 115/86 98 10/16/19 02:15 77 20 121/89 98 10/16/19 02:00 76 31 H 125/94 97 10/16/19 01:45 76 31 H 130/101 98 10/16/19 01:30 75 12 126/97 97 10/16/19 01:15 83 28 H 119/91 97 10/16/19 01:00 74 15 124/93 97 10/16/19 00:45 77 14 123/93 96 10/16/19 00:30 75 17 116/90 99 10/16/19 00:15 76 17 111/89 96 10/16/19 00:00 96.8 F L 75 20 115/89 96 10/15/19 23:45 75 21 111/83 95 10/15/19 23:30 81 19 109/82 97 10/15/19 23:15 83 26 H 107/86 95 10/15/19 23:07 82 19 107/86 97 10/15/19 23:00 75 17 108/86 95 10/15/19 22:45 90 23 111/84 97 10/15/19 22:30 81 15 125/99 95 10/15/19 22:15 89 25 H 116/92 95 10/15/19 22:00 74 17 119/93 94 L 10/15/19 21:45 85 19 119/98 95 10/15/19 21:30 83 13 118/99 94 L 10/15/19 21:20 85 17 118/99 94 L 10/15/19 21:10 88 31 H 123/98 93 L 10/15/19 21:00 84 9 L 116/99 94 L 10/15/19 20:50 88 16 116/99 94 L 10/15/19 20:40 89 14 110/96 96 10/15/19 20:30 96 F L 81 14 115/94 98 10/15/19 20:20 84 9 L 115/94 98 10/15/19 20:10 84 17 114/91 97 10/15/19 20:00 96 F L 85 23 121/92 88 L 10/15/19 19:50 86 18 121/92 96 10/15/19 19:40 85 17 124/100 88 L 10/15/19 19:36 88 23 10/15/19 18:20 105 H 22 144/113 93 L 10/15/19 18:06 103 H 22 153/119 93 L 10/15/19 17:44 98.3 F 99 18 160/122 88 L Intake and Output 10/15/19 10/16/19 10/16/19 22:59 06:59 14:59 Intake Total 797.553 840 375 Output Total 1150 1475 820 Balance -352.829 -901 -192 Intake: IV 775 600 375 Sodium Chloride 0.9% 1, 300 600 375 000 ml @ 75 mls/hr IV . [id number] [facility] Rx#:[id number] Intake, IV Titration 22.553 Amount DOBUTamine DRIP 500 mg In 1.786 Dextrose/Water 1 250ml. bag @ 2.5 MCG/KG/MIN 5. 103 mls/hr IV .Q24H [facility] Rx#:[id number] Furosemide 100 mg In 20.767 Sodium Chloride 0.9% 90 ml @ 7 MG/HR 7 mls/hr IV .[id number] [facility] Rx#: [id number] Oral 240 Output: Urine 1150 1475 820 Other: Voiding Method Indwelling Catheter Indwelling Catheter Weight 68.039 kg Physical Exam: Revealed 49-year-old female in no distress. Head: Atraumatic, normocephalic. HEENT:[Neck is supple.] [No neck masses.] [No thyromegaly.] [No JVD.] PERRLA, EOMI, no icterus. Chest: [Clear throughout, no crackles, no rhonchi, no wheezes.] Cardiac Exam: [Normal S1 and S2, no S3 gallop, 2/6 systolic murmur thought the precordium. Abdomen: [Soft, nontender, no megaly, no rebound, no guarding, normal bowel sounds.] Extremities: [No clubbing, no edema, no cyanosis.] Neurological Exam: [No focal neurologic deficit.] Alert and oriented 3. Psychiatric: Normal mood, affect and normal mental status examination. Skin: No rashes. Results - Laboratory Findings CBC and BMP: 10/16/19 04:32 10/16/19 04:32 ABG ABG pH 7.19 (7.35-7.45) L* 10/15/19 19:13 ABG pCO2 59 mmHg (35-45) H 10/15/19 19:13 ABG pO2 49 mmHg (83-108) L* 10/15/19 19:13 ABG O2 Saturation 75.8 % (94-97) L 10/15/19 19:13 PT/INR, D-dimer PT 9.6 sec (9.0-12.0) 10/15/19 17:55 INR 0.9 (<1.2) 10/15/19 17:55 Abnormal lab findings: Abnormal Labs 10/15/19 10/15/19 10/15/19 17:55 17:55 17:55 WBC 11.7 H Hct 47.4 H Neutrophils # ABG pH ABG pCO2 ABG pO2 ABG Total CO2 ABG O2 Saturation Chloride Carbon Dioxide 19 L BUN 20 H Creatinine 1.15 H Glucose 199 H POC Glucose (mg/dL) Plasma Lactic Acid Miguel AST 122 H ALT 49 H Alkaline Phosphatase 155 H Total Creatine Kinase 179 H CK-MB (CK-2) 5.6 H Troponin I 0.841 H* C-Reactive Protein U Marijuana (THC) Screen 10/15/19 10/15/19 10/15/19 17:55 19:13 19:41 WBC Hct Neutrophils # ABG pH 7.19 L* ABG pCO2 59 H ABG pO2 49 L* ABG Total CO2 25 H ABG O2 Saturation 75.8 L Chloride Carbon Dioxide BUN Creatinine Glucose POC Glucose (mg/dL) 186 H Plasma Lactic Acid Miguel 7.4 H* AST ALT Alkaline Phosphatase Total Creatine Kinase CK-MB (CK-2) Troponin I C-Reactive Protein U Marijuana (THC) Screen 10/15/19 10/15/19 10/16/19 19:55 22:25 01:55 WBC Hct Neutrophils # ABG pH ABG pCO2 ABG pO2 ABG Total CO2 ABG O2 Saturation Chloride 110 H Carbon Dioxide 19 L BUN Creatinine Glucose POC Glucose (mg/dL) Plasma Lactic Acid Miguel 2.3 H* AST ALT Alkaline Phosphatase Total Creatine Kinase CK-MB (CK-2) Troponin I C-Reactive Protein U Marijuana (THC) Screen Detected H 10/16/19 10/16/19 10/16/19 04:32 04:32 07:11 WBC 15.7 H Hct Neutrophils # 11.6 H ABG pH ABG pCO2 ABG pO2 ABG Total CO2 ABG O2 Saturation Chloride Carbon Dioxide BUN 19 H Creatinine Glucose 135 H POC Glucose (mg/dL) 103 H Plasma Lactic Acid Miguel AST 63 H ALT 45 H Alkaline Phosphatase 147 H Total Creatine Kinase CK-MB (CK-2) Troponin I C-Reactive Protein 34.4 H U Marijuana (THC) Screen 10/16/19 12:06 WBC Hct Neutrophils # ABG pH ABG pCO2 ABG pO2 ABG Total CO2 ABG O2 Saturation Chloride Carbon Dioxide BUN Creatinine Glucose POC Glucose (mg/dL) 105 H Plasma Lactic Acid Miguel AST ALT Alkaline Phosphatase Total Creatine Kinase CK-MB (CK-2) Troponin I C-Reactive Protein U Marijuana (THC) Screen - Diagnostic Findings Chest x-ray: image reviewed (Chest x-ray showed slight prominence of the pulmonary vasculature otherwise unremarkable. No active cardiopulmonary disease) Assessment and Plan Assessment: Impression: Severe cardiomyopathy and LV dysfunction, exact etiology is not clear. That is to be investigated further by cardiology and repeat echocardiogram on Thursday. Acute congestive heart failure secondary to LV dysfunction. Rather mild based on the chest x-ray findings. History of hypertension. History of panic attacks. Generalized anxiety disorder. Recommendation: I fully agree with the present treatment plan, Repeat echocardiogram in the next 24 hours, Continue diuretics. Patient is now off Dobutrex. Repeat chest x-ray in a.m. We will continue to follow Time with Patient: Greater than 30
[2019-10-16] MEDS ORDERED: HYDROmorphone 0.5 MG/0.5 ML SYRINGE IVP PRN (14:30)
[2019-10-16] MEDS: CLOPIDOGREL 75 MG TAB PO SCH (14:54)
[2019-10-16 18:12] LABS: Glucose,Whole Blood 137 mg/dL (75-99)
--- NOTE | 2019-10-17 02:51 | PN ---
PROGRESS NOTE DATE OF SERVICE: 10/16/2019 This 49-year-old woman who was admitted with possible acute coronary syndrome has negative coronary arteries, but cardiomyopathy is not indicating possible . The patient also has supraventricular arrhythmia also. Patient is being closely monitored in ICU at this time. Multiple consultants are following the patient closely. A chest x- ray which was reviewed personally showed no evidence of any cardiac failure at this time. PAST MEDICAL HISTORY: Reviewed. REVIEW OF SYSTEMS: CARDIOVASCULAR SYSTEM: As mentioned earlier. RESPIRATORY SYSTEM: As mentioned earlier. GI: No nausea or vomiting. : No dysuria. NERVOUS SYSTEM: No numbness or weakness. CURRENT MEDICATIONS: Current medications are reviewed and include: Tylenol, Xanax, Coreg, Plavix, Lasix, heparin, Dilaudid, Zestril, Narcan, Habitrol, Zofran, Protonix, Aldactone Restoril. PHYSICAL EXAMINATION: Patient is alert and oriented x3. Pulse is 59, blood pressure 112/83, respiration 20, temperature 98.2, pulse ox 95% on 2 L. HEENT: Conjunctivae normal. NECK: No jugular venous distention. CARDIOVASCULAR: S1, S2 muffled. RESPIRATORY: Breath sounds diminished at the bases. Scattered rhonchi and crackles. ABDOMEN: Soft, nontender. No mass palpable. LEGS: No edema. No swelling. NERVOUS SYSTEM: No focal deficits. LABS: WBC 15.7, hemoglobin 15. Sodium 138, potassium 4.1. Glucose 105 and 137. AST, ALT noted. C-reactive protein is also elevated at 34.4. COVID-19 is negative. ASSESSMENT: 1. Possible acute coronary syndrome with acute [id number]-elevation myocardial infarction with troponin 0.841, status post cardiac catheterization showing 45% to 50% left anterior descending artery lesion. 2. Possible cardiomyopathy, ejection fraction 20% with moderate to severe mitral regurgitation with possible mitral prolapse, possible takotsubo syndrome. 3. Possible supraventricular tachycardia. 4. Increased AST, ALT possible hepatitis. 5. COVID-19 ruled out. 6. Elevated plasma lactic acid, possibly from hypoperfusion. 7. Metabolic acidosis, possible lactic acidosis. 8. Increased creatinine with mild acute renal failure possible acute tubular necrosis and dehydration. 9. Increased WBC. 10.History of nicotine dependence. 11.Hypertension. 12.History of hysterectomy. 13.History of cardiac catheterization. 14.History of panic attacks. 15.History of THC. 16.History of anxiety. 17.FULL CODE. RECOMMENDATIONS AND DISCUSSION: In this 49-year-old woman who presented with multiple complex medical issues, we will monitor the patient closely. Continue the current medications, continue symptomatic treatment. Otherwise, continue with antiplatelet agents. Will repeat labs. Continue with lisinopril. Monitor closely. Further recommendations to follow. Continue with Coreg. MMYOLANDA / LIVANN: [id number] / LUIS
[2019-10-17] MEDS: SODIUM CHLORIDE 0.9% 1,000 ML IV SCH ×2 (03:09→13:12)
[2019-10-17 06:19] LABS: HCT 46.6 % (34.0-46.0); HGB 15.3 gm/dL (11.4-16.0); MCH 30.8 pg (25.0-35.0); MCHC 32.7 g/dL (31.0-37.0); Mean Platelet Volume 8.3; Platelet Count 292 k/uL (150-450); RBC 4.96 m/uL (3.80-5.40); RDW 14.6 % (11.5-15.5); WBC 19.1 k/uL (3.8-10.6)
[2019-10-17 06:27] LABS: Calcium 8.5 mg/dL (8.4-10.2)
[2019-10-17] MEDS: PANTOPRAZOLE 40 MG TABLET PO SCH (06:41)
[2019-10-17] MEDS: CARVEDILOL 3.125 MG TAB PO SCH (06:41)
[2019-10-17 06:42] LABS: Large Platelets Present; Lymphocytes # (M) 6.11 k/uL (1.0-4.8); Monocytes # (M) 1.15 k/uL (0-1.0); Neutrophils # (M) 11.84 k/uL (1.3-7.7); Neutrophils % (M) 62 %; Nucleated Red Blood Cells 0 /100 WBC (0-0); Total Cells Counted 100
[2019-10-17] MEDS: LISINOPRIL 10 MG TAB PO SCH (08:24)
[2019-10-17] MEDS: FUROSEMIDE 10 MG/ML 4 ML VIAL IV SCH (08:24)
[2019-10-17] MEDS: NICOTINE 14MG/24HR PATCH TRANSDERM SCH (08:24)
[2019-10-17] MEDS: SPIRONOLACTONE 25 MG TAB PO SCH (08:24)
[2019-10-17] MEDS: CLOPIDOGREL 75 MG TAB PO SCH (08:24)
[2019-10-17] MEDS: HEPARIN SODIUM,PORCINE 5,000 UNIT/ML 1 ML VIAL SQ SCH ×2 (08:24→20:24)
[2019-10-17] MEDS: ALPRAZolam 0.25 MG TAB PO PRN (09:43)
--- NOTE | 2019-10-17 12:10 | PN ---
PROGRESS NOTE PULMONARY/CRITICAL CARE PROGRESS NOTE: DATE OF SERVICE: A 49-year-old female without much in the way of past medical history other than hypertension, anxiety, and a previous history of SVT, who apparently presents to the emergency room on October 14. She was admitted to the hospital on the 10/[address]-segment elevation myocardial infarction, shortness of breath and weakness. She apparently had a catheterization which was normal and she was being evaluated for possible myocarditis versus Takotsubo cardiomyopathy. The patient apparently had severe LV dysfunction of unclear etiology. She presented with acute congestive heart failure. She does again have a history of panic attacks and anxiety. Currently, she is resting comfortably. She is on 2 L nasal cannula. She is getting saline at 75 mL an hour. The patient is apparently going to have a repeat echocardiogram to re- evaluate her overall cardiac function. The patient was weaned off the dobutamine. Current vital signs are reviewed, temperature 98.7, heart rate 60, respiratory rate 23, blood pressure 140/96, mean 110, 2 L saturation between 92% and 94%. She appears in no acute distress. No respiratory distress. No audible wheezing. No use of accessory muscles. HEENT: Examination is grossly unremarkable. Nasal O2 in place. NECK: Supple, full range of motion. No adenopathy. Neck veins are flat. CARDIOVASCULAR: Examination reveals regular rhythm and rate. Heart sounds are distant. S1, S2 normal. Heart rate 60. LUNGS: Reveal a few scattered rhonchi. A few scattered basilar crackles noted. No wheezes. ABDOMEN: Soft, bowel sounds are noted. No masses or tenderness. EXTREMITIES: Intact. No cyanosis, clubbing, or edema. SKIN: Without rash. NEUROLOGIC: Examination is brief but nonfocal. White count 19.1, hemoglobin 15.3, hematocrit 46.6, platelet count 292,000. Sodium, potassium, chloride, CO2 all normal. Anion gap is 6. BUN and creatinine were 22 and 0.91. Microbiologic studies are pending or negative. Chest x-ray on 10/14 was consistent with mild cephalization and fluid overload. Labs are reviewed. N terminal proBNP was initially only 237. CURRENT MEDICATIONS: Reviewed. She is on Tylenol, Xanax, Coreg, Plavix, Lasix, subcu heparin, Dilaudid, Zestril, Narcan, nicotine patch, Zofran, Protonix, saline IV at 75 mL an hour, Aldactone and Restoril. ASSESSMENT: 1. Severe cardiomyopathy and LV dysfunction, of unclear etiology. This is currently being re-evaluated and evaluated by Cardiology. A repeat echocardiogram is scheduled for today. Their concerns include myocarditis versus takotsubo cardiomyopathy. 2. Acute congestive heart failure, much improved. 3. Hypertension. 4. Panic attacks. 5. History of anxiety disorder. 6. Previous history of tobacco use, rule out chronic obstructive pulmonary disease. PLAN: Currently, the patient is doing reasonably well. Echocardiogram is planned for today. The patient's dobutamine has been weaned off. Additional recommendations and suggestions are forthcoming pending the echocardiogram. From the pulmonary standpoint, she appears to be relatively stable. MMODL / IJN: [id number] /
[2019-10-17] MEDS ORDERED: LORazepam 1 MG TAB PO PRN (12:58)
--- NOTE | 2019-10-17 15:18 | XR ---
EXAMINATION TYPE: XR chest 1V portable DATE OF EXAM: 10/17/2019 COMPARISON: Prior chest x-ray 10/15/2019 HISTORY: Pneumonia follow-up TECHNIQUE: Single frontal view of the chest is obtained. FINDINGS: There is no focal air space opacity, pleural effusion, or pneumothorax seen. The cardiac silhouette size is within normal limits. The osseous structures are intact. There are overlying car diac leads. IMPRESSION: No acute process.
[2019-10-17] MEDS: PARoxetine 20 MG TAB PO SCH (15:42)
--- NOTE | 2019-10-17 16:06 | P.PN ---
Subjective Progress Note Date: 10/17/19 This is a 49-year-old female who was swimming yesterday and claimed that she might have been under the water. Patient had some difficulty breathing and subsequently was brought to the emergency room. Her EKG showed some mild ST elevation 1 and aVL and also V1, V2. She was not having any chest pain. 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 Patient had normal coronary arteries but was found to have severely impaired LV function with elevated end-diastolic pressures. Patient was brought on IV Lasix and IV dobutamine. Patient diary [employer] might. She seemed very comfortable. Alert and oriented and in no acute distress. Lying flat in bed without any discomfort or dyspnea. We'll going to discontinue the Lasix drip and dobutamine drip. She was initiated on Lasix by mouth along with Coreg and IFRAH inhibitor. Further recommendation will depend upon the clinical course. We'll also repeat the echocardiogram on Thursday. 10/17/2019: This 46-year-old female is admitted with severe cardiomyopathy. Had a normal coronary angiography. The patient has been stable. Denies any chest pain or shortness of breath. Chest x-ray is clear of CHF. Patient is off IV Lasix drip and also IV dobutamine. We'll start her on by mouth Lasix. Echocardiogram to be repeated. Possible discharge in a.m. Objective - Vital Signs Vital signs: Vital Signs Temp 98.4 F 10/17/19 12:00 Pulse 79 10/17/19 15:00 Resp 21 10/17/19 15:00 BP 158/106 10/17/19 15:00 Pulse Ox 94 L 10/17/19 15:00 Intake & Output 10/16/19 10/17/19 10/17/19 18:59 06:59 18:59 Intake Total 900 900 675 Output Total 1020 1325 250 Balance -120 -425 425 Weight 71.8 kg Intake: IV 900 900 675 Sodium Chloride 0.9% 1, 900 900 675 000 ml @ 75 mls/hr IV . [id number] [facility] Rx#:[id number] Output: Urine 1020 1325 250 Other: Voiding Method Bedpan Bedside Commode Toilet Bedside Commode # Voids 1 - Exam GENERAL EXAM: Patient is alert and oriented and doesn't appear to be in any acute distress HEENT: Normocephalic. Normal reaction of pupils, equal size, normal range of extraocular motion. No erythema or exudates in the throat. NECK: No masses, no nuchal rigidity. CHEST: No chest wall deformity. LUNGS: Equal air entry with no crackles or wheeze. HEART: S1 and S2 normal with no audible mumurs or gallops. Regular rhythm, femorals equal on both sides.. ABDOMEN: No hepatosplenomegaly, normal bowel sounds, no guarding or rigidity. SKIN: No rashes CENTRAL NERVOUS SYSTEM: No focal deficits. EXTREMITIES: No cyanosis, clubbing or edema. - Labs CBC & Chem 7: 10/17/19 05:32 10/17/19 05:32 Labs: Abnormal Lab Results - Last 24 Hours (Table) 10/16/19 10/17/19 10/17/19 Range/Units 18:11 05:32 05:32 WBC 19.1 H (3.8-10.6) k/uL Hct 46.6 H (34.0-46.0) % Neutrophils # (Manual) 11.84 H (1.3-7.7) k/uL Lymphocytes # (Manual) 6.11 H (1.0-4.8) k/uL Monocytes # (Manual) 1.15 H (0-1.0) k/uL BUN 22 H (7-17) mg/dL POC Glucose (mg/dL) 137 H (75-99) mg/dL Assessment and Plan (1) Cardiomyopathy Current Visit: Yes Status: Acute Code(s): I42.9 - CARDIOMYOPATHY, UNSPECIFIED SNOMED Code(s): 01596166 (2) Congestive heart failure Current Visit: Yes Status: Acute Code(s): I50.9 - HEART FAILURE, UNSPECIFIED SNOMED Code(s): 81103635 (3) Elevated troponin Current Visit: Yes Status: Acute Code(s): R79.89 - OTHER SPECIFIED ABNORMAL FINDINGS OF BLOOD CHEMISTRY SNOMED Code(s): 785583919 (4) Abnormal EKG Current Visit: Yes Status: Acute Code(s): R94.31 - ABNORMAL ELECTROCARDIOGRAM [ECG] [EKG] SNOMED Code(s): 603386437 Plan: Patient is critically stable. Chest x-ray is clear. We'll discontinue IV Lasix. Start her on by mouth Lasix. Echo tomorrow. Possible discharge tomorrow
[2019-10-17] MEDS: CARVEDILOL 12.5 MG TAB PO SCH (17:04)
--- NOTE | 2019-10-17 17:46 | PN ---
PROGRESS NOTE DATE OF SERVICE: 10/17/2019 This 49-year-old woman who was admitted with possible cardiorespiratory syndrome and tachycardia also had a significant low ejection fraction. Possibility of Takotsubo syndrome is considered. The patient is being closely monitored. The patient had some mild to moderate coronary artery obstruction. The patient is being closely monitored in the ICU. Past medical history reviewed. REVIEW OF SYSTEMS: CARDIOVASCULAR SYSTEM: As mentioned earlier. RESPIRATORY SYSTEM: As mentioned earlier. GI: No nausea, vomiting. : No dysuria or retention. NERVOUS SYSTEM: No numbness, weakness. CURRENT MEDICATIONS: Reviewed. They include: 1. Tylenol p.r.n. 2. Xanax 0.25 t.i.d. 3. Coreg. 4. Plavix. 5. Lasix. 6. Heparin. 7. Dilaudid. 8. Zestril. 9. Ativan. 10.Narcan. 11.Habitrol. 12.Zofran. 13.Protonix. 14.Aldactone. 15.Restoril. Doses are reviewed. PHYSICAL EXAMINATION: Patient alert and oriented x3. Pulse is 90, blood pressure 160/114, respiration 21, temperature 98.4, pulse ox 94% on room air. HEENT: Conjunctivae normal. NECK: No jugular venous distention. CARDIOVASCULAR SYSTEM: S1, S2 muffled. RESPIRATORY SYSTEM: Breath sounds diminished at the bases. A few scattered rhonchi and crackles. ABDOMEN: Soft, non-tender. LEGS: No edema. No swelling. NERVOUS SYSTEM: No focal deficit. LABS: Labs at this time show WBC 19.1, sodium 138, potassium 4. LFTs are not available. X- rays not available. ASSESSMENT: 1. Possible acute coronary syndrome with acute nxk-BT-[id number]-elevation myocardial infarction with troponin 0.841, status post cardiac catheterization showing 45% to 50% LAD lesion. 2. Possibly cardiomyopathy; ejection fraction 20% with chronic systolic dysfunction with chronic congestive heart failure with moderate to severe mitral regurgitation and possible mitral valve prolapse; possible takotsubo syndrome. 3. Possible supraventricular tachycardia. 4. Increased AST and ALT, possibly hepatitis. 5. COVID-19 ruled out. 6. Elevated plasma lactic acid, possibly secondary to hypoperfusion. 7. Metabolic acidosis, possibly lactic acidosis. 8. Increased creatinine with mild acute renal failure, possible acute tubular necrosis and dehydration, present on admission. 9. Increased white count. 10.History of nicotine dependence. 11.Hypertensions. 12.Hysterectomy. 13.History of cardiac catheterization. 14.History of panic attacks. 15.History of tetrahydrocannabinol. 16.History of anxiety. 17.FULL CODE. RECOMMENDATIONS AND DISCUSSION: I recommend to continue current medications, continue with the monitoring, symptomatic treatment. Otherwise, I would recommend repeat chest x-ray. Repeat labs in the morning. Closely follow with Cardiology. Prognosis extremely guarded because of the multiple complex medical issues. Further recommendations to follow. MMODL / IJN: [id number] /
[2019-10-17] MEDS: LORazepam 0.5 MG TAB PO PRN (20:50)
[2019-10-18 05:25] LABS: Basophils # (A) 0.1 k/uL (0-0.2); Basophils % (A) 1 %; Eosinophils # (A) 0.2 k/uL (0-0.7); Eosinophils % (A) 2 %; HCT 44.4 % (34.0-46.0); HGB 13.9 gm/dL (11.4-16.0); Lymphocytes # (A) 4.9 k/uL (1.0-4.8); Lymphocytes % (A) 40 %; MCH 29.4 pg (25.0-35.0); MCHC 31.2 g/dL (31.0-37.0); MCV 94.4 fL (80.0-100.0); Monocytes # (A) 0.7 k/uL (0-1.0); Monocytes % (A) 6 %; Neutrophils # (A) 6.1 k/uL (1.3-7.7); Neutrophils % (A) 49 %; Platelet Count 354 k/uL (150-450); RBC 4.71 m/uL (3.80-5.40); RDW 14.7 % (11.5-15.5); WBC 12.4 k/uL (3.8-10.6)
[2019-10-18 05:27] LABS: ALT 20 U/L (4-34); AST 27 U/L (14-36); African American GFR (CKD) >90 (>60 ml/min/1.73 sqM); Albumin 3.4 g/dL (3.5-5.0); Alkaline Phosphatase 94 U/L (38-126); Anion Gap 5 mmol/L; Blood Urea Nitrogen 21 mg/dL (7-17); Calcium 8.5 mg/dL (8.4-10.2); Carbon Dioxide 25 mmol/L (22-30); Chloride 106 mmol/L (98-107); Glucose 105 mg/dL (74-99); Non-African American GFR(CKD) 80 (>60 ml/min/1.73 sqM); Potassium 3.7 mmol/L (3.5-5.1); Sodium 136 mmol/L (137-145); Total Bilirubin 0.5 mg/dL (0.2-1.3); Total Protein 5.8 g/dL (6.3-8.2)
[2019-10-18] MEDS: LORazepam 0.5 MG TAB PO PRN ×2 (05:27→13:44)
[2019-10-18] MEDS ORDERED: POTASSIUM CHLORIDE ER 20 MEQ TAB.ER PO SCH (06:00)
[2019-10-18] MEDS: CARVEDILOL 12.5 MG TAB PO SCH (06:13)
[2019-10-18] MEDS: PANTOPRAZOLE 40 MG TABLET PO SCH (06:14)
[2019-10-18] MEDS: SODIUM CHLORIDE 0.9% 1,000 ML IV SCH (07:22)
--- NOTE | 2019-10-18 07:57 | P.PN ---
Subjective Progress Note Date: 10/18/19 Principal diagnosis: Severe cardiomyopathy and LV dysfunction This is a 49-year-old female with no significant previous medical history, patient is a [id number]-dyrj smoker, she was swimming yesterday, and apparently she had significant difficulty getting [place] [facility] [facility] patient was complaining of shortness of breath, she was also diaphoretic, brought into the ER, and she was found to have abnormal EKG with mild ST elevation in aVL, and she had no chest pain. Considering her abnormal EKG and symptoms, patient underwent cardiac catheterization. She was found to have normal coronaries, but she was found to have severely impaired left ventricular function. There is also significant elevation of the end diastolic pressures. Chest x-ray showed mild edema. Patient was placed by the hog worker on IV Lasix and IV dobutamine. Saw her today, the patient is very comfortable, she is on room air, and she is in no distress. Denies any cough no wheezing no shortness of breath at rest, she was seen earlier by cardiology, and she was switched to oral Lasix and her dobutamine was discontinued. Patient was also placed on Coreg, IFRAH inhibitor's, and the feeling is to repeat her echocardiogram on Thursday, patient may have what seems to be a takustubo syndrome. Patient denies any alcohol drinking, denies any previous symptoms suggestive of artery myopathy or LV dysfunction. This seems to be relatively acute onset. On 10/18/2019 patient seen in follow-up in the intensive care unit, she is resting comfortably in bed, denies any shortness of breath or chest pain, vital signs are stable, sinus rhythm on the monitor, room air pulse ox is 92%, hypertensive this morning with a blood pressure 178/105, with a mean of 129, morning blood pressure medications have just been administered. Patient is on a combination of heart rate of low 25 mg twice daily, oral Lasix, lisinopril, and Aldactone. Lung sounds are clear. IV fluids infusing at a rate of 75 ML per hour with 0.9 normal saline. Echocardiogram has been taken, awaiting the repor t. Patient is status post cardiac catheterization which showed normal coronary angiography. Patient has been off Lasix drip and IV dobutamine. Today's chest x-ray shows no acute process. No acute events overnight, today's labs have been reviewed, white blood cell count is 12.4, hemoglobin is 13.9, electrolytes and renal profile are unremarkable. Possible discharge planning for today Objective - Vital Signs Vital signs: Vital Signs Temp 98.8 F 10/18/19 04:00 Pulse 65 10/18/19 07:00 Resp 21 10/18/19 07:00 BP 178/105 10/18/19 07:00 Pulse Ox 92 L 10/18/19 07:00 Intake & Output 10/17/19 10/18/19 10/18/19 18:59 06:59 18:59 Intake Total 900 900 75 Output Total 1250 550 Balance -350 350 75 Weight 70 kg Intake: IV 900 900 75 Sodium Chloride 0.9% 1, 900 900 75 000 ml @ 75 mls/hr IV . [id number] [facility] Rx#:[id number] Output: Urine 1250 550 Other: Voiding Method Toilet Toilet Bedside Commode Bedside Commode # Voids 2 - Exam GENERAL EXAM: Alert, very pleasant, 49-year-old white female, on room air, with pulse ox of 92% comfortable in no apparent distress. HEAD: Normocephalic/atraumatic. EYES: Normal reaction of pupils, equal size. Conjunctiva pink, sclera white. NOSE: Clear with pink turbinates. THROAT: No erythema or exudates. NECK: No masses, no JVD, no thyroid enlargement, no adenopathy. CHEST: No chest wall deformity. Symmetrical expansion. LUNGS: Equal air entry with no crackles, wheeze, rhonchi or dullness. CVS: Regular rate and rhythm, normal S1 and S2, no gallops, no murmurs, no rubs ABDOMEN: Soft, nontender. No hepatosplenomegaly, normal bowel sounds, no guarding or rigidity. EXTREMITIES: No clubbing, no edema, no cyanosis, 2+ pulses and upper and lower extremities. MUSCULOSKELETAL: Muscle strength and tone normal. SPINE: No scoliosis or deformity SKIN: No rashes CENTRAL NERVOUS SYSTEM: Alert and oriented -3. No focal deficits, tone is normal in all 4 extremities. PSYCHIATRIC: Alert and oriented -3. Appropriate affect. Intact judgment and insight. - Labs CBC & Chem 7: 10/18/19 04:59 10/18/19 04:59 Labs: Abnormal Lab Results - Last 24 Hours (Table) 10/18/19 10/18/19 Range/Units 04:59 04:59 WBC 12.4 H (3.8-10.6) k/uL Lymphocytes # 4.9 H (1.0-4.8) k/uL Sodium 136 L (137-145) mmol/L BUN 21 H (7-17) mg/dL Glucose 105 H (74-99) mg/dL Total Protein 5.8 L (6.3-8.2) g/dL Albumin 3.4 L (3.5-5.0) g/dL Assessment and Plan Plan: Assessment: #1. Severe cardiomyopathy and LV dysfunction, exact etiology is not clear, cardiac catheterization showed normal coronary artery angiography #2. Congestive heart failure secondary to LV dysfunction, patient is off Lasix and dobutamine drip, chest x-ray is clear today on 10/18/2019 #3. History of hypertension #4. History of panic attacks #5. Generalized anxiety disorder Plan: Patient has remained stable overnight, today's chest x-ray has been reviewed, no acute process was noted, patient is on room air, she has been transitioned to oral Lasix, echocardiogram results are pending, increase activity as tolerated, hemodynamically patient is stable, discharge home today pending clearance from cardiology I performed a history & physical examination of the patient and discussed their management with my nurse practitioner, Negin Nicholson. I reviewed the nurse practitioner's note and agree with the documented findings and plan of care. Lung sounds are positive for clear breath sounds. The findings and the impression was discussed with the patient. I attest to the documentation by the nurse practitioner. Time with Patient: Less than 30
[2019-10-18] MEDS: LISINOPRIL 10 MG TAB PO SCH (08:45)
[2019-10-18] MEDS: PARoxetine 20 MG TAB PO SCH (08:45)
[2019-10-18] MEDS: HEPARIN SODIUM,PORCINE 5,000 UNIT/ML 1 ML VIAL SQ SCH (08:45)
[2019-10-18] MEDS: CLOPIDOGREL 75 MG TAB PO SCH (08:45)
[2019-10-18] MEDS: NICOTINE 14MG/24HR PATCH TRANSDERM SCH (08:45)
[2019-10-18] MEDS ORDERED: SPIRONOLACTONE 25 MG TAB PO SCH (09:00)
[2019-10-18] MEDS ORDERED: FUROSEMIDE 20 MG TAB PO SCH (09:00)
--- NOTE | 2019-10-18 12:09 | ECHOF ---
Referral Reason:Chest pain and cardiomyopathy MEASUREMENTS -------- HEIGHT: 154.9 cm WEIGHT: 65.8 kg BP: 158/106 RVIDd: 3.2 cm (< 3.3) IVSd: 2.1 cm (0.6 - 1.1) LVIDd: 3.4 cm (3.9 - 5.3) LVPWd: 1.5 cm (0.6 - 1.1) IVSs: 2.4 cm LVIDs: 1.8 cm LVPWs: 1.9 cm LAESV Index (A-L): 23.25 ml/m Ao Diam: 2.8 cm (2.0 - 3.7) AV Cusp: 1.6 cm (1.5 - 2.6) MV EXCURSION: 13.362 mm (> 18.000) MV EF SLOPE: 37 mm/s (70 - 150) EPSS: 0.3 cm MV E Harman: 0.64 m/s MV DecT: 173 ms MV A Harman: 0.79 m/s MV E/A Ratio: 0.82 AR PHT: 521 ms RAP: 5.00 mmHg RVSP: 22.70 mmHg FINDINGS -------- Sinus rhythm. This was a technically adequate study. The left ventricular size is normal. There is severe concentric left ventricular hypertrophy. Ove rall left ventricular systolic function is low-normal with, an EF between 50 - 55 %. The diastolic filling pattern is normal for the age of the patient 15.70. The right ventricle is normal in size. Normal LA size by volume 22+/-6 ml/m2. The right atrial size is normal. Interatrial and interventricular septum intact. The aortic valve is trileaflet and appears structurally normal. There is moderate aortic regurgitat ion. The mitral valve is normal. Mild mitral regurgitation is present. Mild tricuspid regurgitation present. There is no evidence of pulmonary hypertension. The right v entricular systolic pressure, as measured by Doppler, is 22.70mmHg. There is no pulmonic regurgitation present. The aortic root size is normal. Normal inferior vena cava with normal inspiratory collapse consistent with estimated right atrial pre ssure of 5 mmHg. There is no pericardial effusion. CONCLUSIONS -------- 1. There is severe concentric left ventricular hypertrophy. 2. Overall left ventricular systolic function is low-normal with, an EF between 50 - 55 %. 3. The diastolic filling pattern is normal for the age of the patient 15.70 4. Normal LA size by volume 22+/-6 ml/m2. 5. The aortic valve is trileaflet and appears structurally normal. 6. There is moderate aortic regurgitation. 7. Mild mitral regurgitation is present. 8. Mild tricuspid regurgitation present. 9. There is no pulmonic regurgitation present. 10. There is no pericardial effusion. CLINICAL SALES CONSULTANT: Melinda Minaya RDCS
--- NOTE | 2019-10-18 14:46 | P.PN ---
Subjective Progress Note Date: 10/18/19 This is a 49-year-old female who was swimming yesterday and claimed that she might have been under the water. Patient had some difficulty breathing and subsequently was brought to the emergency room. Her EKG showed some mild ST elevation 1 and aVL and also V1, V2. She was not having any chest pain. Be cause of abnormal EKG, which was questionable for DE, patient was taken general labor. Patient had normal coronary arteries but was found to have severely impaired LV function with elevated end-diastolic pressures. Patient was brought on IV Lasix and IV dobutamine. Patient diary [employer] might. She seemed very comfortable. Alert and oriented and in no acute distress. Lying flat in bed without any discomfort or dyspnea. We'll going to discontinue the Lasix drip and dobutamine drip. She was initiated on Lasix by mouth along with Coreg and IFRAH inhibitor. Further recommendation will depend upon the clinical course. We'll also repeat the echocardiogram on Thursday. 10/17/2019: This 46-year-old female is admitted with severe cardiomyopathy. Had a normal coronary angiography. The patient has been stable. Denies any chest pain or shortness of breath. Chest x-ray is clear of CHF. Patient is off IV Lasix drip and also IV dobutamine. We'll start her on by mouth Lasix. Echocardiogram to be repeated. Possible discharge in a.m. 10/18/2019: This patient is admitted with symptoms of shortness of breath and evidence of possible DE. Cardiac cath showed normal coronary arteries and fin dings consistent apical ballooning syndrome. Patient has responded well to medical therapy. He remained stable except blood pressure is high. It. Patient wants to go home. Echo Cardigan showed improved LV function with still hypokinesis of the septal and apical areas but ejection fraction is about 45- 50%. Patient will continue with beta blockers, IFRAH inhibitor R's and small of diuretics and Aldactone. Patient will be discharged home. Follow-up with Dr. LAVINIA Glover Objective - Vital Signs Vital signs: Vital Signs Temp 98.3 F 10/18/19 08:00 Pulse 71 10/18/19 08:00 Resp 19 10/18/19 08:00 BP 148/99 10/18/19 08:00 Pulse Ox 94 L 10/18/19 08:00 Intake & Output 10/17/19 10/18/19 10/18/19 18:59 06:59 18:59 Intake Total 900 900 600 Output Total 1250 550 Balance -350 350 600 Weight 70 kg Intake: IV 900 900 600 Sodium Chloride 0.9% 1, 900 900 600 000 ml @ 75 mls/hr IV . [id number] [facility] Rx#:[id number] Output: Urine 1250 550 Other: Voiding Method Toilet Toilet Toilet Bedside Commode Bedside Commode Bedside Commode # Voids 2 1 - Exam GENERAL EXAM: Patient is alert and oriented and doesn't appear to be in any acute distress HEENT: Normocephalic. Normal reaction of pupils, equal size, normal range of extraocular motion. No erythema or exudates in the throat. NECK: No masses, no nuchal rigidity. CHEST: No chest wall deformity. LUNGS: Equal air entry with no crackles or wheeze. HEART: S1 and S2 normal with no audible mumurs or gallops. Regular rhythm, femorals equal on both sides.. ABDOMEN: No hepatosplenomegaly, normal bowel sounds, no guarding or rigidity. SKIN: No rashes CENTRAL NERVOUS SYSTEM: No focal deficits. EXTREMITIES: No cyanosis, clubbing or edema. - Labs CBC & Chem 7: 10/18/19 04:59 10/18/19 04:59 Labs: Abnormal Lab Results - Last 24 Hours (Table) 10/18/19 10/18/19 Range/Units 04:59 04:59 WBC 12.4 H (3.8-10.6) k/uL Lymphocytes # 4.9 H (1.0-4.8) k/uL Sodium 136 L (137-145) mmol/L BUN 21 H (7-17) mg/dL Glucose 105 H (74-99) mg/dL Total Protein 5.8 L (6.3-8.2) g/dL Albumin 3.4 L (3.5-5.0) g/dL Assessment and Plan (1) Cardiomyopathy Current Visit: Yes Status: Acute Code(s): I42.9 - CARDIOMYOPATHY, UNSPECIFIED SNOMED Code(s): 73949006 (2) Congestive heart failure Current Visit: Yes Status: Acute Code(s): I50.9 - HEART FAILURE, UNSPECIFIED SNOMED Code(s): 51514431 (3) Elevated troponin Current Visit: Yes Status: Acute Code(s): R79.89 - OTHER SPECIFIED ABNORMAL FINDINGS OF BLOOD CHEMISTRY SNOMED Code(s): 343286872 (4) Abnormal EKG Current Visit: Yes Status: Acute Code(s): R94.31 - ABNORMAL ELECTROCARDIOGRAM [ECG] [EKG] SNOMED Code(s): 982390935 Plan: Patient is admitted with findings consistent with apical ballooning syndrome. Echocardiogram showed improvement in LV function. Patient is being discharged home on medical therapy including beta jhonatan, IFRAH inhibitor, Plavix, and also diuretics. Follow-up with Dr. LAVINIA Glover
[2019-10-18 15:10] VITALS: BP 169/112; PULSE 66; RESP 15; TEMP 98.6
--- NOTE | 2019-10-18 16:18 | P.DS ---
Providers Date of admission: 10/15/19 18:17 Attending physician: Mariela Au Consults: 10/15/19 17:58 Consult Physician Stat Consulting Provider: Felicita William Consult Reason/Comments: stemi Do you want consulting provider notified?: Already Contacted 10/15/19 20:00 Consult Physician Routine Consulting Provider: Carlota Ramos Consult Reason/Comments: ICU management Do you want consulting provider notified?: Already Contacted Primary care physician: Physician Nonstaff Hospital Course: 49-year-old female admitted for congestive heart failure and found to have takustubo syndrome. Patient have ST elevations the inferior leads found to have clean coronariesbut her EF was around 15% repeat echocardiogram showed normal ejection fraction. Although as per recommendation from cardiology patient is still being discharged on Aldactone, Lasix may not require down the line. Patient at one point of time was on Lasix drip and IV dobutamine. For further details please refer to documentation a progress note from Dr. Valverde from yesterday. Patient is clinically doing well is being discharged today in stable medical condition to home. PHYSICAL EXAMINATION: GENERAL: The patient is alert and oriented x3, not in any acute distress. Well developed, well nourished. HEENT: Pupils are round and equally reacting to light. EOMI. No scleral icterus. No conjunctival pallor. Normocephalic, atraumatic. No pharyngeal erythema. No thyromegaly. CARDIOVASCULAR: S1 and S2 present. No murmurs, rubs, or gallops. PULMONARY: Chest is clear to auscultation, no wheezing or crackles. ABDOMEN: Soft, nontender, nondistended, normoactive bowel sounds. No palpable organomegaly. MUSCULOSKELETAL: No joint swelling or deformity. EXTREMITIES: No cyanosis, clubbing, or pedal edema. NEUROLOGICAL: Gross neurological examination did not reveal any focal deficits. SKIN: No rashes. For other medical problems hospice physician course please refer to the progress note from Dr. Au from yesterday Patient Condition at Discharge: Critical Plan - Discharge Summary Discharge Rx Participant: Yes New Discharge Prescriptions: New Spironolactone [Aldactone] 12.5 mg PO DAILY #30 tab Furosemide [Lasix] 20 mg PO DAILY #30 tab Clopidogrel [Plavix] 75 mg PO DAILY #30 tab Continue PARoxetine HCL [Paxil] 40 mg PO DAILY Carvedilol [Coreg] 25 mg PO BID Losartan [Cozaar] 50 mg PO DAILY Discontinued Hydrochlorothiazide 12.5 mg PO DAILY Discharge Medication List Carvedilol [Coreg] 25 mg PO BID 10/15/19 [History] PARoxetine HCL [Paxil] 40 mg PO DAILY 10/15/19 [History] Losartan [Cozaar] 50 mg PO DAILY 10/16/19 [History] Clopidogrel [Plavix] 75 mg PO DAILY #30 tab 10/18/19 [Rx] Furosemide [Lasix] 20 mg PO DAILY #30 tab 10/18/19 [Rx] Spironolactone [Aldactone] 12.5 mg PO DAILY #30 tab 10/18/19 [Rx] Follow up Appointment(s)/Referral(s): Jordin Glover MD [STAFF PHYSICIAN] - 1 Week (Office is aware of need for follow up, will call patient with appointment date and time) Nonstaff,Physician [Primary Care Provider] - 3 Days (Dr. Navas - office of aware of need for follow up, reporting issues with scheduling system, patient aware of need to schedule follow up appointment) Patient Instructions/Handouts: Heart Failure (ER), Heart Failure (DC), How to Stop Smoking (DC), Acute Coronary Syndrome (DC) Discharge Disposition: HOME SELF-CARE
[2019-10-19] MEDS ORDERED: LOSARTAN 50 MG TAB PO SCH (09:00)
--- NOTE | 2019-10-20 12:04 | CDI ---
Documentation Clarification Form Date: 10/20/19 From: Denise Dumont CCS Phone: If you have a question about this query, please contact Sophia Chamorro, Maintenance Parts Technician at [phone] between 8am and 5pm. Admit Date: 10/15/19 Discharge Date:10/18/19 Patient Name: Elisabeth Monterroso Visit Number: [id number] ATTENTION: The Clinical Documentation Specialists (CDI) and [facility] Coding Staff appreciate your assistance in clarifying documentation. Please respond to the clarification below the line at the bottom and electronically sign. The CDI & [facility] Coding staff will review the response and follow-up if needed. Please note: Queries are made part of the Legal Health Record. If you have any questions, please contact the author of this message via ITS. Dear Dr. Cervantes, Documentation states: Blood Gas: pH 7.19, pCO2 59, pO2 49, O2 Sat 88 Dr Glover documents in the Cath notes: She was sent to the room in hemodynamically stable condition. However, patient was quite hypoxic.Her oxygen saturation was in the 80s. History/Risk Factors: CHF, ATN, Takotsubu syndrome, Cardiomyopathy, HTN, Tobacco Clinical indicators: Hypoxic Treatment: O2 Nasal Cannula 2 lpm Clinical significance of diagnostic testing and treatment CANNOT be assumed or coded without physician documentation of significance if any. Please clarify what abnormal laboratory signifies: Acute hypoxic respiratory failure Respiratory acidosis Chronic respiratory failure Disease process, please specify Abnormal Lab Value Unable to determine Other, please specify Acute hypoxic respiratory failure MTDD
== END 2019-10-18 15:33 | disposition home or self-care (01) | DRG 286 ==
LOC: EC 17:41 → 2SICU 18:17
PROVIDERS: ADMIT Hospitalist; ATTEND Hospitalist
PROC: B2111ZZ Fluoroscopy of Multiple Coronary Arteries using Low Osmolar Contrast (ICD-10-PCS; 2019-10-15)
PROC: 4A023N7 Measurement of Cardiac Sampling and Pressure, Left Heart, Percutaneous Approach (ICD-10-PCS; principal; 2019-10-15 18:21)
DX: I51.81 Takotsubo syndrome (principal); I50.23 Acute on chronic systolic (congestive) heart failure; N17.0 Acute kidney failure with tubular necrosis; J96.01 Acute respiratory failure with hypoxia; E87.2 Acidosis; I42.9 Cardiomyopathy, unspecified; Z20.828 Contact with and (suspected) exposure to other viral communicable diseases; I11.0 Hypertensive heart disease with heart failure; K75.9 Inflammatory liver disease, unspecified; F41.0 Panic disorder [episodic paroxysmal anxiety]; F17.200 Nicotine dependence, unspecified, uncomplicated; I34.0 Nonrheumatic mitral (valve) insufficiency; F41.1 Generalized anxiety disorder; I25.10 Atherosclerotic heart disease of native coronary artery without angina pectoris; Z79.899 Other long term (current) drug therapy; Z90.710 Acquired absence of both cervix and uterus; Z71.6 Tobacco abuse counseling; Z98.890 Other specified postprocedural states; Z88.6 Allergy status to analgesic agent; Z88.5 Allergy status to narcotic agent
CPT/HCPCS: 36415; 71045; 80048; 80051; 80053; 80306; 81003; 82550; 82553; 82805; 83605; 83735; 83880; 84484; 85025; 85610; 85652; 85730; 86140; 93005; 93306; 93458; 96374; 99285